=== PATIENT | male | born 1965 | race Hispanic/Latino ===

== ENCOUNTER 2020-10-27 04:55 | Emergency (ER) | payer SELFPAY ==
[~2020-10-27] VITALS: Ht 170.2 cm; Wt 81.6 kg
[2020-10-27] MEDS ORDERED: EMPA10TA PO (05:37)
[2020-10-27] MEDS ORDERED: ATOR10 PO (05:37)
[2020-10-27] MEDS ORDERED: LOSA1TAB42 PO (05:37)
[2020-10-27] MEDS ORDERED: SITA1TAB6 PO (05:37)
[2020-10-27 05:42] VITALS: BP 128/72
== END 2020-10-27 05:50 | disposition home or self-care (01) ==
LOC: EDH 04:55
DX: Z76.0 Encounter for issue of repeat prescription (principal); E11.9 Type 2 diabetes mellitus without complications; I10 Essential (primary) hypertension; Z79.84 Long term (current) use of oral hypoglycemic drugs
CPT/HCPCS: 99281